=== PATIENT | male | born 1985 | race Caucasian/White ===

== ENCOUNTER 2020-09-17 04:11 | Inpatient (IN) | payer MEDICAID ==
[~2020-09-17] VITALS: Ht 180.3 cm; Wt 63.6 kg
[2020-09-17] VITALS (12 sets, daily range): BP systolic 87–121; BP diastolic 51–72
[~2020-09-17 04:11] MED LIST: dextrose 50%-water 50ml dispensing syringe IV ONE; naloxone 0.4 mg/ml inj ONE
--- NOTE | 2020-09-17 04:15 | NUR ---
PT GIVEN NARCAN 2 MG IV.
[2020-09-17] MEDS ORDERED: naloxone 2mg/2ml inj ONE ×3 (04:20→04:25)
--- NOTE | 2020-09-17 04:22 | NUR ---
GIVEN ADTL NARCAN 2 MG IV. PT RESPONDING SLIGHTLY. PT IS MAINTAINING HIS AIRWAY.
--- NOTE | 2020-09-17 04:23 | NUR ---
PT WITH EYES OPEN AND MUMBLING
[2020-09-17] MEDS ORDERED: diphenhydrAMINE 50 mg/ml inj ONE (04:32)
[2020-09-17] MEDS ORDERED: naloxone 2mg/2ml inj 2 MG in normal saline 500ml IV soln 498 ML IV ONE (04:35)
[2020-09-17] MEDS ORDERED: normal saline 1000ML IV soln IVB ONE ×2 (04:45→06:20)
[2020-09-17] MEDS ORDERED: BUPR1FIL5 SL (04:47)
[2020-09-17] MEDS ORDERED: BUPR150T8 PO (04:47)
--- NOTE | 2020-09-17 05:19 | NUR ---
Called [facility] to inquire if similar blue pills had been found in the community. [facility] did not have any information.
--- NOTE | 2020-09-17 05:20 | NUR ---
Poison control contacted. 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 No information was available on the pills. Poison control recommended a full tox screen, CMP, and CBC. Recommendation to continue supportive care and to use benzodiazepines for agitation to avoid using antipsychotics.
--- NOTE | 2020-09-17 05:21 | NUR ---
LATE ENTRY: 4TH DOSE 2 MG NARCN GIVEN AT 0426 5TH DOSE NARCAN 2 MG GIVEN AT 0429 BENEDRYL 50 MG IV AT 0435 6TH DOSE NARCAN 2 MG GIVEN AT 0438 NARCAN GTT STARTED 045 ACCUC HECK 46, (PT WAS FOUND BY EMS WITH GLUCOSE OF 60 AND WAS GIVEN D50 AND EMS RECHECK WAS 175.) 1 AMP D50 ADMIN 0504 ACCUCHECK 141 PT RESTRAINED AND SEIZURE PADS PLACED tEMP BANDA PLACED AND URINE SENT TO LAB. PT CONTINUES FIGHTING THE RESTRAINTS AND IS RESTLESS INTHE BED. EYES OPEN, MUMBLING INTERMITTENTLY. HR 114, RR 26 SATS ON RA 96%.
[2020-09-17 05:24] LABS: BASOPHILS % (AUTO) 0.4 % (0-1); EOSINOPHILS # (AUTO) 0.1 X10'3 (0-0.9); EOSINOPHILS % (AUTO) 2.1 % (0-6); HEMATOCRIT 40.8 % (42.0-52.0); HEMOGLOBIN 13.6 g/dl (14.0-17.9); LYMPHOCYTES # (AUTO) 3.2 X10'3 (1.1-4.8); LYMPHOCYTES % (AUTO) 49.4 % (21-51); MEAN CORPUSCULAR HEMOGLOBIN 30.2 PG (27.0-31.0); MEAN CORPUSCULAR HGB CONC 33.3 g/dL (33.0-36.5); MEAN CORPUSCULAR VOLUME 90.6 FL (78-98); MEAN PLATELET VOLUME 8.4 FL (7.4-10.4); MONOCYTES # (AUTO) 0.5 X10'3 (0-0.9); MONOCYTES % (AUTO) 8.3 % (2-12); NEUTROPHILS # (AUTO) 2.6 X10'3 (1.8-7.7); NEUTROPHILS % (AUTO) 39.8 % (42-75); PLATELET COUNT 268 X10'3 (140-440); RED CELL DISTRIBUTION WIDTH 13.5 % (11.5-14.5); WHITE BLOOD COUNT 6.4 X10'3 (4.5-11.0)
[2020-09-17 05:42] LABS: ALANINE AMINOTRANSFERASE 37 U/L (12-78); ALBUMIN 3.7 G/DL (3.4-5.0); ALBUMIN/GLOBULIN RATIO 1.1 (1.1-1.5); ALKALINE PHOSPHATASE 69 IU/L (46-116); ANION GAP 13 (8-16); ASPARTATE AMINO TRANSFERASE 32 U/L (10-37); BILIRUBIN,TOTAL 0.2 MG/DL (0.1-1.0); BLOOD UREA NITROGEN 11 MG/DL (7-18); BUN/CREATININE RATIO 13.8 (5.4-32.0); CALCIUM 9.1 MG/DL (8.5-10.1); CHLORIDE 106 MMOL/L (99-107); GLUCOSE 53 MG/DL (70-104); POTASSIUM 4.1 MMOL/L (3.5-5.1); SODIUM 147 MMOL/L (135-145); TOTAL CARBON DIOXIDE 28.3 MMOL/L (24-32); TOTAL PROTEIN 7.2 G/DL (6.4-8.2); eGFR > 90 ML/MIN
[2020-09-17 05:44] LABS: CREATINE KINASE 359 U/L (39-308); ETHANOL < 0.010 GM/DL (0.0-0.010)
[2020-09-17 05:45] LABS: ACETAMINOPHEN < 2.0 UG/ML (10-30)
[2020-09-17 05:46] LABS: CLARITY,URINE CLEAR (Clear); COLOR,URINE YELLOW (Yellow); GLUCOSE, URINE NEGATIVE (Neg); KETONES,URINE NEGATIVE (Neg); LEUKOCYTE ESTERASE ,URINE NEGATIVE (Neg); NITRITES, URINE NEGATIVE (Neg); OCCULT BLOOD,URINE NEGATIVE (Neg); PH,URINE 5.5 (4.8-8.0); PROTEIN,URINE NEGATIVE (Neg); UROBILINOGEN,URINE 0.2 E.U/dL (0.2-1.0)
[2020-09-17 05:51] LABS: UA COLLECTION TYPE FOLEY CATH
--- NOTE | 2020-09-17 06:02 | NUR ---
DR RIVERA UPDATED ACCUCHECK 82. VERBAL RECEIVED FOR STOP THE NARCAN GTT AND HE WILL START PT ON DEXTROSE MAINTENCE FLUIDS AND WILL ALSO ORDER ATIVAN. PT REMAINS RESTLESS AND IS PULLING AT ALL HIS RESTRAINTS
[2020-09-17] MEDS ORDERED: Dextrose 10%-water IV solution 1,000 ML IV ONE (06:05)
[2020-09-17] MEDS ORDERED: LORazepam 2 mg/ml vial IV ONE ×2 (06:05→06:20)
[2020-09-17 06:12] LABS: URINE AMPHETAMINE SCREEN POSITIVE (Neg); URINE BARBITUATE SCREEN NEGATIVE (Neg); URINE BENZODIAZEPINES SCREEN POSITIVE (Neg); URINE CANNABINOID SCREEN POSITIVE (Neg); URINE COCAINE SCREEN NEGATIVE (Neg); URINE METHADONE SCREEN NEGATIVE (Neg); URINE OPIATE SCREEN POSITIVE (Neg); URINE PHENCYCLIDINE SCREEN NEGATIVE (Neg)
--- NOTE | 2020-09-17 06:34 | NUR ---
uPON FIRST ASESEMENT, PT IS IN BED WITH 4 WAY HARD LOCKED RESTRAINTS. PT IS AGITATED AND TRYING TO GET OUT OF BED. PT NOT ENGAGING WITH ATTEMPTS TO COMMUNICATE. PT DOES MUMBLE RANDOM INCOHERENT WORDS.
[2020-09-17] MEDS: K, MAG and/or Phos replacement - Verify level? MC SCH ×2 (07:20→08:00)
[2020-09-17] MEDS ORDERED: acetaminophen 325mg tablet PO PRN (07:20)
[2020-09-17] MEDS ORDERED: potassium Cl 20 mEq SR tablet PO PRN ×2 (07:20)
[2020-09-17] MEDS ORDERED: magnesium hydroxide 30ml (MOM) UD suspension PO PRN (07:20)
[2020-09-17] MEDS ORDERED: buprenorphine/naloxone 8MG-2MG SUBlingual film SL ONE ×2 (07:45→08:25)
[2020-09-17] MEDS ORDERED: buprenorphine/naloxone 8MG-2MG SUBlingual film SL SCH (08:05)
[2020-09-17] MEDS: dexmedetomidine/D5W 100mL 100 ML IV PRN ×2 (08:18→22:31)
[2020-09-17 08:21] LABS: ABG BASE EXCESS 0.3 mmol/L (-2.0-2.0); ABG HCO3 24.6 mmol/L (22.0-26.0); ABG OXYGEN SATURATION 92.8 % (94-97); ABG PCO2 (T) 38.3 mmHg (35.0-48.0); ABG PO2 (T) 62.4 mmHg (75.0-100.0); ALLEN'S TEST POSITIVE; FCOHb 0.3 % (0.0-3.9); FMetHb 0.4 % (0.0-1.5); FO2Hb 92.2 % (94-97); PATIENT TEMPERATURE 36.7; TOTAL HEMOGLOBIN 13.1 G/dl (14.0-18.0)
--- NOTE | 2020-09-17 10:23 | NUR ---
Received at 0955, On precedex and sedated after being very combative and resistant to care in ER.
[2020-09-17] MEDS ORDERED: BUPR300T86 PO (11:31)
[2020-09-17] MEDS ORDERED: atropine 0.1mg/ml 10ml syringe ONE (12:00)
[2020-09-17] MEDS ORDERED: ringers solution, lacted 1,000 ML IV ONE (13:55)
--- NOTE | 2020-09-17 14:01 | NUR ---
Pt's urine output 20ml for the last 3 hours, per Dr. Daniels started 1L LR bolus running now. Also pt not waking up, Turned Precedex off couple hours ago. Temperature 34.9. Placed warming blanket on pt. Dr. Daniels aware of all.
[2020-09-17 14:16] LABS: BASOPHILS % (AUTO) 0.2 % (0-1); EOSINOPHILS % (AUTO) 0.1 % (0-6); HEMATOCRIT 33.9 % (42.0-52.0); HEMOGLOBIN 11.7 g/dl (14.0-17.9); LYMPHOCYTES # (AUTO) 0.6 X10'3 (1.1-4.8); LYMPHOCYTES % (AUTO) 11.6 % (21-51); MEAN CORPUSCULAR HEMOGLOBIN 30.7 PG (27.0-31.0); MEAN CORPUSCULAR HGB CONC 34.4 g/dL (33.0-36.5); MEAN CORPUSCULAR VOLUME 89.2 FL (78-98); MEAN PLATELET VOLUME 7.7 FL (7.4-10.4); MONOCYTES # (AUTO) 0.3 X10'3 (0-0.9); NEUTROPHILS # (AUTO) 4.4 X10'3 (1.8-7.7); NEUTROPHILS % (AUTO) 83.1 % (42-75); PLATELET COUNT 180 X10'3 (140-440); RED BLOOD COUNT 3.79 X10'6 (4.70-6.10); RED CELL DISTRIBUTION WIDTH 13.4 % (11.5-14.5); WHITE BLOOD COUNT 5.3 X10'3 (4.5-11.0)
[2020-09-17 14:31] LABS: ALBUMIN 2.9 G/DL (3.4-5.0); ANION GAP 6 (8-16); BLOOD UREA NITROGEN 9 MG/DL (7-18); BUN/CREATININE RATIO 13.2 (5.4-32.0); CHLORIDE 110 MMOL/L (99-107); CREATINE KINASE 998 U/L (39-308); CREATININE 0.68 MG/DL (0.60-1.10); GLUCOSE 156 MG/DL (70-104); MAGNESIUM 1.8 MG/DL (1.5-2.4); PHOSPHORUS 4.3 MG/DL (2.3-4.5); POTASSIUM 3.8 MMOL/L (3.5-5.1); SODIUM 145 MMOL/L (135-145); TOTAL CARBON DIOXIDE 28.8 MMOL/L (24-32); eGFR > 90 ML/MIN
[2020-09-17 14:38] LABS: ABG BASE EXCESS 0.1 mmol/L (-2.0-2.0); ABG HCO3 27.1 mmol/L (22.0-26.0); ABG OXYGEN SATURATION 94.9 % (94-97); ABG PCO2 (T) 50.6 mmHg (35.0-48.0); ABG PO2 (T) 71.3 mmHg (75.0-100.0); ALLEN'S TEST POSITIVE; FCOHb 0.3 % (0.0-3.9); FMetHb 0.4 % (0.0-1.5); FO2Hb 94.2 % (94-97); PATIENT TEMPERATURE 35.1; TOTAL HEMOGLOBIN 11.8 G/dl (14.0-18.0)
--- NOTE | 2020-09-17 18:15 | NUR ---
Patient in room CICU 2008. I have received report from ALEE JUSTICE and had the opportunity to ask questions and assume patient care.
--- NOTE | 2020-09-17 18:37 | NUR ---
Called pt's mom after i got the number from pt. She said that pt texted her last night that he wants to kill himself, this drug overdose was intentional. Mom said "do not let him leave the hospital or he will attempt to kill himself again". Called Dr. Daniels and informed her of this situation. She placed a Psych consult, also gave her Dr. Mishra's number. Informed Farzaneh Martinez and the mails supervisor nurse as well. Gave full report to mails supervisor nurse.
[2020-09-17] MEDS: normal saline 1000ml 1,000 ML IV SCH (19:54)
[2020-09-17] MEDS: enoxaparin 40mg/0.4ml syringe SUBCUT SCH (21:43)
[2020-09-17 21:47] LABS: BASOPHILS % (AUTO) 0.3 % (0-1); EOSINOPHILS # (AUTO) 0.1 X10'3 (0-0.9); HEMATOCRIT 35.2 % (42.0-52.0); HEMOGLOBIN 11.9 g/dl (14.0-17.9); LYMPHOCYTES # (AUTO) 1.3 X10'3 (1.1-4.8); LYMPHOCYTES % (AUTO) 15.8 % (21-51); MEAN CORPUSCULAR HEMOGLOBIN 30.6 PG (27.0-31.0); MEAN CORPUSCULAR HGB CONC 33.9 g/dL (33.0-36.5); MEAN CORPUSCULAR VOLUME 90.5 FL (78-98); MONOCYTES # (AUTO) 0.5 X10'3 (0-0.9); MONOCYTES % (AUTO) 6.8 % (2-12); NEUTROPHILS % (AUTO) 76.1 % (42-75); PLATELET COUNT 202 X10'3 (140-440); RED BLOOD COUNT 3.89 X10'6 (4.70-6.10); RED CELL DISTRIBUTION WIDTH 13.4 % (11.5-14.5); WHITE BLOOD COUNT 7.9 X10'3 (4.5-11.0)
[2020-09-17 22:11] LABS: ALBUMIN 2.9 G/DL (3.4-5.0); ANION GAP 6 (8-16); BLOOD UREA NITROGEN 8 MG/DL (7-18); CALCIUM 8.1 MG/DL (8.5-10.1); CHLORIDE 109 MMOL/L (99-107); CREATININE 0.73 MG/DL (0.60-1.10); GLUCOSE 66 MG/DL (70-104); POTASSIUM 3.8 MMOL/L (3.5-5.1); SODIUM 146 MMOL/L (135-145); eGFR > 90 ML/MIN
[2020-09-17 22:13] LABS: CREATINE KINASE 1027 U/L (39-308)
[2020-09-18] VITALS (17 sets, daily range): BP systolic 98–120; BP diastolic 57–85
[2020-09-18] MEDS: normal saline 1000ml 1,000 ML IV SCH (03:00)
[2020-09-18 08:45] LABS: BASOPHILS % (AUTO) 0.1 % (0-1); EOSINOPHILS # (AUTO) 0.1 X10'3 (0-0.9); EOSINOPHILS % (AUTO) 0.8 % (0-6); HEMATOCRIT 34.3 % (42.0-52.0); HEMOGLOBIN 11.6 g/dl (14.0-17.9); LYMPHOCYTES # (AUTO) 1.1 X10'3 (1.1-4.8); LYMPHOCYTES % (AUTO) 14.2 % (21-51); MEAN CORPUSCULAR HEMOGLOBIN 30.7 PG (27.0-31.0); MEAN CORPUSCULAR VOLUME 90.5 FL (78-98); MEAN PLATELET VOLUME 8.2 FL (7.4-10.4); MONOCYTES # (AUTO) 0.5 X10'3 (0-0.9); MONOCYTES % (AUTO) 5.9 % (2-12); PLATELET COUNT 171 X10'3 (140-440); RED BLOOD COUNT 3.79 X10'6 (4.70-6.10); RED CELL DISTRIBUTION WIDTH 13.5 % (11.5-14.5); WHITE BLOOD COUNT 7.6 X10'3 (4.5-11.0)
[2020-09-18 08:53] LABS: ALANINE AMINOTRANSFERASE 34 U/L (12-78); ALBUMIN 2.8 G/DL (3.4-5.0); ANION GAP 7 (8-16); ASPARTATE AMINO TRANSFERASE 48 U/L (10-37); BILIRUBIN,DIRECT 0.2 MG/DL (0-0.3); BILIRUBIN,TOTAL 0.5 MG/DL (0.1-1.0); BLOOD UREA NITROGEN 7 MG/DL (7-18); BUN/CREATININE RATIO 8.8 (5.4-32.0); CALCIUM 8.2 MG/DL (8.5-10.1); CHLORIDE 109 MMOL/L (99-107); GLUCOSE 111 MG/DL (70-104); MAGNESIUM 1.8 MG/DL (1.5-2.4); PHOSPHORUS 3.3 MG/DL (2.3-4.5); POTASSIUM 3.8 MMOL/L (3.5-5.1); SODIUM 145 MMOL/L (135-145); TOTAL CARBON DIOXIDE 29.2 MMOL/L (24-32); TOTAL PROTEIN 5.5 G/DL (6.4-8.2); eGFR > 90 ML/MIN
[2020-09-18 09:08] LABS: ALKALINE PHOSPHATASE 57 IU/L (46-116)
[2020-09-18 09:09] LABS: CREATINE KINASE 1299 U/L (39-308)
[2020-09-18] MEDS ORDERED: PEG 400/HYPROMELLOSE/GLYCERIN 15ml bottle EACHEYE PRN (10:40)
[2020-09-18 15:42] LABS: CREATINE KINASE 1220 U/L (39-308)
[2020-09-18] MEDS ORDERED: buprenorphine/naloxone 8MG-2MG SUBlingual film SL ONE (16:15)
--- NOTE | 2020-09-18 16:45 | NUR ---
PATIENT ARRIVED TO FLOOR. VSS.
--- NOTE | 2020-09-18 16:52 | NUR ---
RECEIVED REPORT FROM ALEE REDD. AWAITING PATIENT ARRIVAL.
--- NOTE | 2020-09-18 18:19 | NUR ---
Problems reprioritized. Patient report given, questions answered & plan of care reviewed with ALEE WANG.
--- NOTE | 2020-09-18 18:25 | NUR ---
Patient in room [facility] 360. I have received report from Cara VICKERS and had the opportunity to ask questions and assume patient care.
--- NOTE | 2020-09-18 18:30 | NUR ---
Patient in room [facility] 360. I have received report from Cara VICKERS and had the opportunity to ask questions and assume patient care.
[2020-09-18] MEDS: enoxaparin 40mg/0.4ml syringe SUBCUT SCH (20:22)
--- NOTE | 2020-09-18 20:43 | NUR ---
Received a note that mom wants to talk to the MD. Informed Radha that the hospitalist will be assuming care of her son tomorrow and that the plan is to wait until patient is medically cleared and then will be having a psych eval. ASked if she had pt's pants,wallet or keys, which she does not. Mom said she will call [employer] [place] police tomorrow and that maybe they might know what happened to them (as not listed on the SBar here). Mom states that she will be in tomorrow to visit her son.
--- NOTE | 2020-09-18 23:14 | NUR ---
Poison control called (Chi), asking about LOC and labs. Answered all questons and Chi stated "ok, I think we are pretty much done at this end".
[2020-09-19] VITALS: BP 123/76
[2020-09-19 07:50] VITALS: BP 111/65
[2020-09-19] MEDS: buprenorphine/naloxone 2-0.5mg sublingual tablet SL SCH (08:25)
[2020-09-19] MEDS: buPROPion SR 150mg tablet PO SCH ×2 (08:25→20:29)
[2020-09-19 08:31] LABS: ALBUMIN 2.7 G/DL (3.4-5.0); ANION GAP 9 (8-16); BLOOD UREA NITROGEN 5 MG/DL (7-18); BUN/CREATININE RATIO 7.9 (5.4-32.0); CHLORIDE 106 MMOL/L (99-107); CREATINE KINASE 711 U/L (39-308); CREATININE 0.63 MG/DL (0.60-1.10); GLUCOSE 85 MG/DL (70-104); POTASSIUM 3.1 MMOL/L (3.5-5.1); SODIUM 144 MMOL/L (135-145); TOTAL CARBON DIOXIDE 29.3 MMOL/L (24-32); eGFR > 90 ML/MIN
[2020-09-19] MEDS ORDERED: potassium Cl 40MEQ/1/2NS 520ml 520 ML IV PRN (09:50)
[2020-09-19] MEDS ORDERED: magnesium 4gm in 100ml NS 100 ML IV PRN (09:50)
[2020-09-19] MEDS ORDERED: magnesium Cl slow-release 64mg tablet PO PRN (09:50)
[2020-09-19] MEDS ORDERED: potassium Cl 20 mEq SR tablet PO PRN (09:50)
[2020-09-19] MEDS: potassium Cl 20 mEq SR tablet PO PRN ×3 (11:47→21:53)
[2020-09-19 13:17] VITALS: BP 126/68
--- NOTE | 2020-09-19 18:19 | NUR ---
Problems reprioritized. Patient report given, questions answered & plan of care reviewed with lien ospina.
--- NOTE | 2020-09-19 18:23 | NUR ---
PAGER ID: [phone] MESSAGE: Charlee Vallejo 360B: patient requesting something to help him sleep. says he normally uses ambien and it works for him. thank you [phone]
[2020-09-19] MEDS ORDERED: Melatonin 3mg tablet PO PRN (18:40)
[2020-09-19 19:00] VITALS: BP 129/77
[2020-09-19] MEDS: enoxaparin 40mg/0.4ml syringe SUBCUT SCH (20:32)
[2020-09-19] MEDS: K and/or MAG REPLACEMENT MC SCH (21:50)
--- NOTE | 2020-09-20 06:04 | NUR ---
Report given to Micheal IVCKERS. questions asked and answered, care of patient assumed by Micheal vickers
[2020-09-20 06:05] LABS: BASOPHILS % (AUTO) 0.3 % (0-1); EOSINOPHILS # (AUTO) 0.1 X10'3 (0-0.9); EOSINOPHILS % (AUTO) 2.2 % (0-6); HEMATOCRIT 34.1 % (42.0-52.0); HEMOGLOBIN 11.7 g/dl (14.0-17.9); LYMPHOCYTES # (AUTO) 1.3 X10'3 (1.1-4.8); LYMPHOCYTES % (AUTO) 20.5 % (21-51); MEAN CORPUSCULAR HEMOGLOBIN 30.5 PG (27.0-31.0); MEAN CORPUSCULAR HGB CONC 34.3 g/dL (33.0-36.5); MEAN PLATELET VOLUME 8.1 FL (7.4-10.4); MONOCYTES # (AUTO) 0.5 X10'3 (0-0.9); MONOCYTES % (AUTO) 7.7 % (2-12); NEUTROPHILS # (AUTO) 4.5 X10'3 (1.8-7.7); NEUTROPHILS % (AUTO) 69.3 % (42-75); PLATELET COUNT 194 X10'3 (140-440); RED BLOOD COUNT 3.83 X10'6 (4.70-6.10); RED CELL DISTRIBUTION WIDTH 13.1 % (11.5-14.5); WHITE BLOOD COUNT 6.5 X10'3 (4.5-11.0)
[2020-09-20 06:26] LABS: ALANINE AMINOTRANSFERASE 49 U/L (12-78); ALBUMIN 2.6 G/DL (3.4-5.0); ALBUMIN/GLOBULIN RATIO 0.8 (1.1-1.5); ALKALINE PHOSPHATASE 72 IU/L (46-116); ANION GAP 5 (8-16); ASPARTATE AMINO TRANSFERASE 55 U/L (10-37); BILIRUBIN,TOTAL 0.4 MG/DL (0.1-1.0); BLOOD UREA NITROGEN 3 MG/DL (7-18); BUN/CREATININE RATIO 5.2 (5.4-32.0); CALCIUM 8.3 MG/DL (8.5-10.1); CHLORIDE 106 MMOL/L (99-107); CREATININE 0.58 MG/DL (0.60-1.10); GLUCOSE 85 MG/DL (70-104); MAGNESIUM 1.9 MG/DL (1.5-2.4); PHOSPHORUS 3.5 MG/DL (2.3-4.5); POTASSIUM 4.9 MMOL/L (3.5-5.1); SODIUM 140 MMOL/L (135-145); TOTAL CARBON DIOXIDE 29.3 MMOL/L (24-32); TOTAL PROTEIN 5.8 G/DL (6.4-8.2); eGFR > 90 ML/MIN
--- NOTE | 2020-09-20 06:38 | NUR ---
RN accepting is now Isabella RN, report given and questions answered, care of patient assumed by Isabella VICKERS
[2020-09-20 08:00] VITALS: BP 116/78
[2020-09-20] MEDS: K and/or MAG REPLACEMENT MC SCH (08:00)
[2020-09-20] MEDS: buPROPion SR 150mg tablet PO SCH ×2 (08:17→19:15)
[2020-09-20] MEDS: buprenorphine/naloxone 2-0.5mg sublingual tablet SL SCH (08:18)
[2020-09-20 10:56] LABS: CREATINE KINASE 566 U/L (39-308)
[2020-09-20 11:55] VITALS: BP 124/73
--- NOTE | 2020-09-20 14:07 | NUR ---
Initial: Pt admit DX multiple med OD w/ SI on 1798 hold pending U eval for 5150 hold per EMR. Pt PO 100% initial meals though refused breakfast this AM; noted now AOx4 from initial ALOC. Overall still meeting needs. LB 09/17. Will continue to monitor for PO acceptance and trends this admit. Rec: 1. continue regular diet 2. routine bowel care 3. scaled wt this admit Addendum: 09/20/20 at [address] Amended: Links added.
--- NOTE | 2020-09-20 18:31 | NUR ---
Problems reprioritized. Patient report given, questions answered & plan of care reviewed with ALEE PARIKH.
--- NOTE | 2020-09-20 18:31 | NUR ---
Patient in room [facility] 360B. I have received report from ALEE Mason and had the opportunity to ask questions and assume patient care.
[2020-09-20 19:00] VITALS: BP 152/79
[2020-09-20] MEDS: enoxaparin 40mg/0.4ml syringe SUBCUT SCH (19:15)
--- NOTE | 2020-09-20 20:47 | NUR ---
at discharge when at the pharmacy door, patient asked about the disposition of his wallet and drivers license and $600 arredondo. He states his pants were cut off, but he didn't know where the wallet was. [employer] information explains the wallet was sent home with family. Mom was present at the time and made no offer of clarification as to having taken the wallet home.
== END 2020-09-20 19:30 | disposition home or self-care (01) | DRG 817 ==
LOC: ER 04:11 → ED HOLD 07:16 → CICU 2S 09:54 → SUR 3N 09-18 17:17
PROVIDERS: ADMIT Internal Medicine Pulmonary Disease; ATTEND Internal Medicine Pulmonary Disease
DX: T43.622A Poisoning by amphetamines, intentional self-harm, initial encounter (principal); R45.851 Suicidal ideations; T40.602A Poisoning by unspecified narcotics, intentional self-harm, initial encounter; E16.2 Hypoglycemia, unspecified; E86.9 Volume depletion, unspecified; Z20.822 Contact with and (suspected) exposure to COVID-19; Z79.899 Other long term (current) drug therapy; Y92.89 Other specified places as the place of occurrence of the external cause; E87.6 Hypokalemia
CPT/HCPCS: 36415; 36600; 70450; 71045; 80048; 80053; 80076; 80305; 80320; 80329; 81003; 82140; 82550; 82803; 82948; 83605; 83735; 84100; 85018; 85025; 85610; 87081; 87635; 93005; 96365; 97116; 97162; 97530; 99291; G0378; J0461; J1200; J1650; J2060; J2310; J7030; J7120

== ENCOUNTER 2021-02-20 20:08 | Emergency (ER) | payer MEDICAID ==
[~2021-02-20] VITALS: Ht 177.8 cm; Wt 65.9 kg
[~2021-02-20 20:08] MED LIST changes: +BUPR1FIL5 SL; +BUPR300T86 PO; -dextrose 50%-water 50ml dispensing syringe IV ONE; -naloxone 0.4 mg/ml inj ONE
[2021-02-20 21:25] VITALS: BP 110/70
== END 2021-02-20 21:27 ==
LOC: ER 20:08
DX: F15.10 Other stimulant abuse, uncomplicated (principal); T50.905A Adverse effect of unspecified drugs, medicaments and biological substances, initial encounter; Z02.89 Encounter for other administrative examinations
CPT/HCPCS: 99283

== ENCOUNTER 2021-07-06 12:11 | Outpatient (CLI) | payer MEDICAID | END 2021-07-06 23:59 | disposition home or self-care (01) | LOC: LAB 12:11 | PROVIDERS: ATTEND General Practice | DX: F11.20 Opioid dependence, uncomplicated (principal) | CPT/HCPCS: 93005 ==

== ENCOUNTER 2023-09-09 10:14 | Outpatient (CLI) | payer MEDICAID ==
[~2023-09-09 10:14] MED LIST changes: +BUPR-564 PO; -BUPR300T86 PO
== END 2023-09-09 23:59 | disposition home or self-care (01) ==
LOC: RAD 10:14
PROVIDERS: ATTEND General Practice
DX: Z01.810 Encounter for preprocedural cardiovascular examination (principal)
CPT/HCPCS: 93005

== ENCOUNTER 2024-02-03 12:09 | Emergency (ER) | payer MEDICAID ==
[~2024-02-03] VITALS: Ht 182.9 cm; Wt 105.6 kg
[2024-02-03 14:08] LABS: BASOPHILS % (AUTO) 0.2 % (0-1); EOSINOPHILS % (AUTO) 0.2 % (0-6); HEMATOCRIT 46.5 % (42.0-52.0); HEMOGLOBIN 15.6 g/dl (14.0-17.9); LYMPHOCYTES # (AUTO) 1.1 X10'3 (1.1-4.8); MEAN CORPUSCULAR HEMOGLOBIN 30.3 PG (27.0-31.0); MEAN CORPUSCULAR HGB CONC 33.7 g/dL (33.0-36.5); MEAN PLATELET VOLUME 7.8 FL (7.4-10.4); MONOCYTES # (AUTO) 0.5 X10'3 (0-0.9); NEUTROPHILS # (AUTO) 2.9 X10'3 (1.8-7.7); NEUTROPHILS % (AUTO) 63.6 % (42-75); PLATELET COUNT 295 X10'3 (140-440); RED BLOOD COUNT 5.16 X10'6 (4.70-6.10); RED CELL DISTRIBUTION WIDTH 15.9 % (11.5-14.5); WHITE BLOOD COUNT 4.6 X10'3 (4.5-11.0)
[2024-02-03 14:34] LABS: ALBUMIN 4.2 G/DL (3.4-5.0); ANION GAP 6 (8-16); BLOOD UREA NITROGEN 14 MG/DL (7-18); BUN/CREATININE RATIO 15.4 (10.0-20.0); CALCIUM 8.9 MG/DL (8.5-10.1); CHLORIDE 101 MMOL/L (99-107); CREATININE 0.91 MG/DL (0.60-1.10); GLUCOSE 92 MG/DL (70-104); POTASSIUM 4.4 MMOL/L (3.5-5.1); SODIUM 139 MMOL/L (135-145); THYROID STIMULATING HORMONE 2.21 ulU/ml (0.34-4.50); TOTAL CARBON DIOXIDE 31.6 MMOL/L (24-32); eCRCL 123 ML/MIN; eGFR > 90 ML/MIN
[2024-02-03] MEDS ORDERED: PROP10TA10 PO (14:49)
[2024-02-03 14:58] VITALS: BP 147/81; PULSE 92; RESP 16; TEMP 98.9; O2SAT 95
== END 2024-02-03 14:59 | disposition home or self-care (01) ==
LOC: ER 12:10
DX: R25.1 Tremor, unspecified (principal); F32.A Depression, unspecified; F15.90 Other stimulant use, unspecified, uncomplicated; Z79.899 Other long term (current) drug therapy
CPT/HCPCS: 36415; 70450; 80048; 84145; 84443; 85025; 99284

== ENCOUNTER 2024-02-14 16:57 | Emergency (ER) | payer MEDICAID ==
[~2024-02-14] VITALS: Ht 177.8 cm; Wt 100.0 kg
[~2024-02-14 16:57] MED LIST changes: +PROP10TA10 PO
[2024-02-14 17:01] VITALS: BP 130/91; PULSE 77; RESP 16; TEMP 97.4; O2SAT 99
[2024-02-14] MEDS ORDERED: TIZA-189 PO (17:13)
== END 2024-02-14 17:27 | disposition home or self-care (01) ==
LOC: ER 16:58
DX: R25.1 Tremor, unspecified (principal); F15.90 Other stimulant use, unspecified, uncomplicated; Z79.899 Other long term (current) drug therapy
CPT/HCPCS: 99283

== ENCOUNTER 2024-09-03 20:12 | Emergency (ER) | payer MEDICAID ==
[~2024-09-03] VITALS: Ht 182.9 cm; Wt 115.9 kg
[~2024-09-03 20:12] MED LIST changes: +BUPR-480 PO; -BUPR-564 PO; -PROP10TA10 PO; +TIZA-189 PO
[2024-09-03 20:17] VITALS: TEMP 98.4
--- NOTE | 2024-09-03 20:57 | RADIOLOGY REPORT ---
EXAM: CT CT HEAD INDICATION: FALL TECHNIQUE: CT of the head without intravenous contrast. Radiation Dose Information: CT Dose: CTDI volume is 65.06 mGy. Dose-length product is 1227.10 mGy*cm The dose indicators for CT are the volume Computed Tomography (CT) Dose Index (CTDIvol) and the Dose Length Product (DLP), and are measured in units of mGy and mGy-cm, respectively. These indicators are not patient dose, but values generated from the CT scanner acquisition factors. The report includes radiation exposure data for exposures received during this examination. COMPARISON: CT CT HEAD on DOS: 02/03/24, CT HEAD on DOS: 09/17/20 FINDINGS: There is no evidence of acute intracranial hemorrhage, extra-axial collection, mass effect, midline s hift, herniation or hydrocephalus. The ventricles, sulci and cisterns are age appropriate. The garcia-white differentiation is intact. Patchy periventricular and subcortical white matter hypoattenuation is nonspecific but may be related to small vessel ischemic disease. The visualized paranasal sinuses and mastoid air cells are clear. The surrounding soft tissues and osseous structures are unremarkable. IMPRESSION: 1. No acute intracranial abnormality.
--- NOTE | 2024-09-03 21:00 | RADIOLOGY REPORT ---
EXAM: CT CT CERVICAL SPINE INDICATION: FALL EXAM DATE: 09/03/2024 08:42 PM COMPARISON: None TECHNIQUE: Multiple axial CT images of the cervical spine were obtained using bone algorithm. Axial a nd coronal reformatting was done. Bone and soft tissue windows were reviewed. Radiation Dose Information: CT Dose: CTDI volume is 27.43 mGy. Dose-length product is 867163 mGy*cm FINDINGS: The cervical alignment is intact. No acute cervical spine fracture is identified. The vertebral body heights are intact. No suspicious osseous lesions are identified. No significant degenerative changes are identified. There is no prevertebral soft tissue swelling. IMPRESSION: 1. No evidence of acute cervical spine fracture or traumatic malalignment. 2. All CT scans at this medical facility are performed using dose modulation techniques as appropriate to a performed exam including the following: Automated exposure control was utilized; adjustment of t he MA and/or KV according to patient size; and use of iterative reconstruction technique.
--- NOTE | 2024-09-03 22:53 | Physician Documentation ---
History of Present Illness ~ Chief Complaint: Mechanical Fall Stated Complaint: FALL HIT HEAD Time Seen by MD: 22:38 Primary Medical Doctor: Dominic HULL Patient is seen today with complaints of falling off of the two steps going into his trailer and he fell down onto some cinder blocks and hit his head on the concrete. Patient states he did lose consciousness for a few sec per his recollection. Patient denies any current nausea or vomiting or memory loss. Patient states he also did hit his right foot/ankle on something and has some swelling and pain there but states he is able to bear weight. Patient has no other concern or complaint at this time. Tetanus within 5 Years?: No (unk) Medication Reconciliation Allergies: Uncoded Allergies: TRIAMINIC (Allergy, Unknown, 09/03/24) Scheduled Buprenorphine Hcl/Naloxone Hcl (Suboxone 4 Mg-1 Mg Sl Film), 1 STRIP SL DAILY, (Reported) Bupropion HCl (Bupropion Xl), 1 TAB PO DAILY, (Reported) Tizanidine Hcl (Zanaflex), 1 TAB PO Q8H Past Medical History Past Medical History: No Pertinent History Alcohol Use: None Drug Use: methamphetamine, other Review of Systems Constitutional: Denies: chills, fever, weakness Eyes: Denies: pain, blurred vision ENT: Denies: ear pain, nose pain, throat pain, mouth pain Respiratory: Denies: cough, shortness of breath Cardiovascular: Denies: chest pain, palpitations Gastrointestinal: Denies: abdominal pain, nausea, vomiting Genitourinary: Denies: burning, dysuria Male Genitalia: Denies: penile discharge, testicular pain Neurological: Denies: headache, dizziness Musculoskeletal: Denies: pain, swelling Integumentary: Denies: rash, lesions Allergic/Immunologic: Denies: hives, itching Hematologic/Lymphatic: Denies: no symptoms reported Psychiatric: Denies: depression, anxiety Physical Exam Vital Signs: Temperature: 98.4, Source: Temporal, Heart Rate: 90, Respiratory Rate: 18, BP: 171/96, Pulse Oximetry: 95, Weight: 115.910 Physical Exam General: Awake and Alert, no acute distress. HEENT: PERRLA bilaterally, EOM intact bilaterally. Conjunctiva pink, Sclera clear, Mucus Membranes moist. Neck: Supple without masses and tenderness. Resp: Unlabored. Lungs clear to auscultation bilaterally. Heart: Regular Rate and rhythm, normal S1 and S2 without murmur, rub or gallop. Abdomen: Soft and non tender no organomegaly Musculoskeletal: Patient does have mild swelling on the lateral aspect of his right foot. Range of motion of right ankle intact. Patient has no tenderness to palpation of the medial or lateral malleoli distally. Patient has minimal tenderness to palpation along the head of the 5th metatarsal proximally. There is a small abrasion on the lateral aspect of the right foot. Patient is guy rovascularly intact distally. Motor function intact distally of bilateral upper and lower extremities. Extremities: No cyanosis,clubbing or edema. Skin: Warm and Dry. Progress Results/Orders Results/Orders Orders - VERA MONTALVO PAC Ct Head (09/03/24 20:27) Ct Cervical Spine (09/03/24 20:27) Completed Orders - VERA MONTALVO PAC Ct Head (09/03/24 20:27) Ct Cervical Spine (09/03/24 20:27) Vital Signs 09/03/24 20:17 Temp 98.4 Pulse 90 Resp 18 B/P (MAP) 171/96 Pulse Ox 95 EKG/XRAY/CT/US/VASC/MRI CT : Impression CAT SCAN Patient: NAHED MANJARREZ Medical Record: [id number] [facility] 1985, Age: 38 Sex: Male Location: ER Patient Status: [facility] ER Service Date/Time: 09/03/242026 Ordering Physician: VERA MONTALVO PAC Exam: CT CERVICAL SPIN E EXAM: CT CT CERVICAL SPINE INDICATION: FALL EXAM DATE: 09/03/2024 08:42 PM COMPARISON: None TECHNIQUE: Multiple axial CT images of the cervical spine were obtained using bone algorithm. Axial and coronal reformatting was done. Bone and soft tissue windows were reviewed. Radiation Dose Information: CT Dose: CTDI volume is 27.43 mGy. Dose-length product is 384508 mGy*cm FINDINGS: The cervical alignment is intact. No acute cervical spine fracture is identified. The vertebral body heights are intact. No suspicious osseous lesions are identified. No significant degenerative changes are identified. There is no prevertebral soft tissue swelling. IMPRESSION: 1. No evidence of acute cervical spine fracture or traumatic malalignment. 2. All CT scans at this medical facility are performed using dose modulation techniques as appropriate to a performed exam including the following: Automated exposure control was utilized; adjustment of the MA and/or KV according to patient size; and use of iterative reconstruction technique. Electronically Signed by:LORRAINE WATERMAN MD Date & Time: 09/03/242057 Dictated by: LORRAINE WATERMAN MD Dictation date and time: 09/03/242057 Primary Care Provider: NO PRIMARY CARE PROVIDER cc: VERA MONTALVO PAC ~ CAT SCAN Patient: NAHED MANJARREZ Medical Record: [id number] [facility] 1985, Age: 38 Sex: Male Location: ER Patient Status: [facility] ER Service Date/Time: 09/03/242026 Ordering Physician: VERA MONTALVO PAC Exam: CT HEAD EXAM: CT CT HEAD INDICATION: FALL TECHNIQUE: CT of the head without intravenous contrast. Radiation Dose Information: CT Dose: CTDI volume is 65.06 mGy. Dose-length product is 1227.10 mGy*cm The dose indicators for CT are the volume Computed Tomography (CT) Dose Index (CTDIvol) and the Dose Length Product (DLP), and are measured in units of mGy and mGy-cm, respectively. These indicators are not patient dose, but values generated from the CT scanner acquisition factors. The report includes radiation exposure data for exposures received during this examination. COMPARISON: CT CT HEAD on DOS: 02/03/24, CT HEAD on DOS: 09/17/20 FINDINGS: There is no evidence of acute intracranial hemorrhage, extra-axial collection, mass effect, midline shift, herniation or hydrocephalus. The ventricles, sulci and cisterns are age appropriate. The garcia-white differentiation is intact. Patchy periventricular and subcortical white matter hypoattenuation is nonspecific but may be related to small vessel ischemic disease. The visualized paranasal sinuses and mastoid air cells are clear. The surrounding soft tissues and osseous structures are unremarkable. IMPRESSION: 1. No acute intracranial abnormality. Electronically Signed by:LORRAINE WATERMAN MD Date & Time: 09/03/242054 Dictated by: LORRAINE WATERMAN MD Dictation date and time: 09/03/242054 Primary Care Provider: NO PRIMARY CARE PROVIDER cc: VERA MONTALVO PAC ~ Medical Decision Making Findings Patient is seen today with complaints of falling off of the two steps going into his trailer and he fell down onto some cinder blocks and hit his head on the concrete. Patient states he did lose consciousness for a few sec per his recollection. Patient denies any current nausea or vomiting or memory loss. Patient states he also did hit his right foot/ankle on something and has some swelling and pain there but states he is able to bear weight. Patient has no other concern or complaint at this time. CT scan of head and neck were unremarkable without any sign of acute injury. Patient declined x-ray of right foot at this time. Patient will advance activity level as tolerated on right foot and if no better in two days patient will return for x-rays of right foot and ankle or as needed sooner. Return to ED with any worsening, concerning or changing symptoms. Postconcussive protocol discussed with the patient and voiced understanding. Departure Disposition: HOME / SELF CARE / HOMELESS Impression: Primary Impression: Fall Qualified Codes: W19.XXXA - Unspecified fall, initial encounter Additional Impression: Concussion Qualified Codes: S06.0X1A - Concussion with loss of consciousness of 30 minutes or less, initial encounter Condition: Improved Discharge Instructions: Concussion, Adult, [id number], Fall Prevention in the Home, Adult, [id number] Additional Instructions: CT scan of head and neck were unremarkable without any sign of acute injury. Patient declined x-ray of right foot at this time. Patient will advance activity level as tolerated on right foot and if no better in two days patient will return for x-rays of right foot and ankle or as needed sooner. Return to ED with any worsening, concerning or changing symptoms. Postconcussive protocol discussed with the patient and voiced understanding. Referrals: NO PRIMARY CARE PROVIDER (PCP) Signature Scribe Signature: No scribe Attestation: No scribe VERA MONTALVO PAC September 03, 2024 22:53
[2024-09-03 23:04] VITALS: BP 156/97; PULSE 89; RESP 18; O2SAT 92
== END 2024-09-03 23:14 | disposition home or self-care (01) ==
LOC: ER 20:12
DX: S06.0X1A Concussion with loss of consciousness of 30 minutes or less, initial encounter (principal); Z79.899 Other long term (current) drug therapy; W18.30XA Fall on same level, unspecified, initial encounter; Y93.89 Activity, other specified; Y92.89 Other specified places as the place of occurrence of the external cause; Y99.8 Other external cause status
CPT/HCPCS: 70450; 72125; 99284

== ENCOUNTER 2024-09-06 14:27 | Emergency (ER) | payer MEDICAID ==
[~2024-09-06] VITALS: Ht 185.4 cm; Wt 113.6 kg
[2024-09-06] MEDS: normal saline 1000ml 1,000 ML IV ONE (15:00)
--- NOTE | 2024-09-06 15:06 | ELECTROCARDIOGRAPH REPORT ---
[facility] Test Date: 2024-09-06 Test Time: 15:02:46 Pat Name: NAHED MANJARREZ Department: [facility]- Patient ID: 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 Reading MD: Dr. Ariadna Serrato Measurements Intervals [place] Rate: 100 P: 72 GA: 150 QRS: 75 QRSD: 95 T: 8 QT: 300 QTc: 387 Interpretive Statements Sinus tachycardia Borderline T wave abnormalities Non specific changes Electronically Signed On 09-07-2024 18:43:[address] Ariadna Serrato Please click the below link to view image of tracing.
--- NOTE | 2024-09-06 15:14 | Physician Documentation ---
History of Present Illness ~ Chief Complaint: Overdose Stated Complaint: WITHDRAWAL Time Seen by MD: 14:55 Primary Medical Doctor: Dominic Olvera HPI 38-year-old male brought to the emergency department today by his mother after he was found to be slurring his words and difficult to arouse. On questioning, he admits that he orders bromazolam on the Internet, 2 mg tablets as what he believes he takes. He typically takes them two to 3 times a day but admits that he took 10 today. He denies intent to harm himself. He denies any concerns. History of diabetes, but is unsure what he takes. Medication Reconciliation Allergies: Uncoded Allergies: TRIAMINIC (Allergy, Unknown, 09/03/24) Scheduled Buprenorphine Hcl/Naloxone Hcl (Suboxone 4 Mg-1 Mg Sl Film), 1 STRIP SL DAILY, (Reported) Bupropion HCl (Bupropion Xl), 1 TAB PO DAILY, (Reported) Naloxone HCl (Narcan), 1 SPRAYS BOTHNARES ONCE Tizanidine Hcl (Zanaflex), 1 TAB PO Q8H Past Medical History Past Medical History: No Pertinent History Alcohol Use: None Drug Use: methamphetamine, other Review of Systems ROS As stated above in the HPI, otherwise all systems are reviewed and negative. Physical Exam Vital Signs: Temperature: 99.0, Source: Oral, Heart Rate: 109, Respiratory Rate: 16, BP: 171/76, Pulse Oximetry: 94, Weight: 113.640 Oxygen Flow Rate: 0 Physical Exam General: Arousable but drowsy. No distress. Neck: Full range of motion. Respiratory: Lungs clear, no respiratory distress. Chest: No accessory muscle use. Cardiovascular: Regular rate and rhythm, no murmurs. Gastrointestinal: Soft, nontender, nondistended. Bowels sounds present. Extremities: Normal range of motion, no deformity. Neurologic: Oriented x4. No focal deficits. Speech slurred but answers questions appropriately but with somewhat delayed response time. Psychiatric: Normal mood and affect. Skin: Normal color, warm and dry. Trace edema to both feet. Scabbed wound right lateral foot. Progress Progress Note 1551: Desaturated to 81% on room air-placed on two liters of oxygen. Dr. Dea Khalil reassessed this patient at 10:36 p.m. he is sitting upright completely alert and oriented ready for discharge Results/Orders Results/Orders Vital Signs 09/06/24 09/06/24 09/06/24 09/06/24 14:28 14:44 14:45 14:52 Temp 99.0 Pulse 105 109 111 Resp 18 13 13 16 B/P (MAP) 140/70 171/76 (107) 171/76 (107) Pulse Ox 94 94 96 O2 Flow Rate 0 0 09/06/24 09/06/24 09/06/24 09/06/24 15:00 15:15 15:30 15:45 Pulse 107 95 91 89 Resp 17 13 13 11 B/P (MAP) 142/58 (86) 134/79 (97) 146/91 (109) 129/89 (102) Pulse Ox 86 91 89 91 O2 Flow Rate 0 3.0 09/06/24 09/06/24 09/06/24 09/06/24 16:00 16:15 16:22 16:30 Pulse 81 82 89 88 Resp 8 9 8 10 B/P (MAP) 181/90 (120) 139/114 (122) 139/114 155/95 (115) Pulse Ox 91 90 90 97 09/06/24 09/06/24 09/06/24 09/06/24 17:26 18:20 19:00 20:00 Pulse 82 89 74 63 Resp 17 12 11 10 B/P (MAP) 156/99 (118) 176/96 143/84 (103) 132/94 (107) Pulse Ox 94 96 96 94 O2 Flow Rate 4.0 2.5 09/06/24 09/06/24 09/06/24 21:00 22:00 23:09 Temp 98.5 Pulse 66 78 74 Resp 9 12 13 B/P (MAP) 167/92 (117) 133/96 (108) 127/81 Pulse Ox 95 95 93 Laboratory Tests Test 09/06/24 15:12 09/06/24 15:15 White Blood Count 9.6 Red Blood Count 4.78 Hemoglobin 13.3 L Hematocrit 40.6 L Mean Corpuscular Volume 85.1 Mean Corpuscular Hemoglobin 27.8 Mean Corpuscular Hemoglobin Concent 32.7 L Red Cell Distribution Width 14.8 H Platelet Count 260 Mean Platelet Volume 8.2 Neutrophils (%) (Auto) 76.8 H Lymphocytes (%) (Auto) 13.3 L Monocytes (%) (Auto) 8.0 Eosinophils (%) (Auto) 1.7 Basophils (%) (Auto) 0.2 Neutrophils # (Auto) 7.4 Lymphocytes # (Auto) 1.3 Monocytes # (Auto) 0.8 Eosinophils # (Auto) 0.2 Basophils # (Auto) 0.0 CBC Comment Sodium Level 147 H Potassium Level 3.7 Chloride Level 106 Carbon Dioxide Level 31.5 Anion Gap 10 Blood Urea Nitrogen 23 H Creatinine 1.00 Estimated GFR/1.73 m2 85 BUN/Creatinine Ratio 23.0 H Glucose Level 63 L Calcium Level 8.6 Total Bilirubin 0.4 Aspartate Amino Transf (AST/SGOT) 206 H Alanine Aminotransferase (ALT/SGPT) 60 Alkaline Phosphatase 68 Total Protein 7.0 Albumin 3.6 Globulin 3.4 Albumin/Globulin Ratio 1.1 Chemistry Comments Acetaminophen Level < 2.0 L Ethyl Alcohol Level < 10 Urine Opiates Screen Negative Urine Methadone Screen Positive Urine Fentanyl Screen Negative Urine Barbiturates Screen Negative Urine Phencyclidine Screen Negative Urine Amphetamines Screen Negative Urine Benzodiazepines Screen Positive Urine Cocaine Screen Negative Urine Cannabinoids Screen Negative Drug Screen Comment EKG/XRAY/CT/US/VASC/MRI EKG : Additional Comment 1502 EKG interpreted to show Sinus tachycardia at [address] segment elevation. QTC 387 ms. Medical Decision Making Additional Comment This is a 38-year-old male with a history of polysubstance abuse. His mother brought him to the emergency department today due to concerns that he was difficult to awaken. The patient admits to taking a type of benzodiazepine that he orders online today. He denied intention to harm himself, but admitted to taking 20-30 tablets, which is much more than his usual 2-3 tablets per day. In addition, his urine drug screen was positive for methadone. The patient was given naloxone when he was found to be positive for methadone, but this did not affect any change in his mental status. He ultimately did require 2 L of oxygen to maintain saturations greater than 90%. He was placed on his side to recuperate from his inadvertent overdose. Poison control has been contacted, and suggested that the patient be monitored for 6 hours. Departure Disposition: 01 HOME / SELF CARE / HOMELESS Impression: Primary Impression: Poisoning by opiate or related narcotic Additional Impression: AMS (altered mental status) Condition: Stable Discharge Instructions: Benzodiazepine Overdose, Opioid Overdose Additional Instructions: Mixing opioids and benzodiazepines is risky and can cause compounded respiratory depression which can cause . You have been referred to the substance abuse navigator at this hospital and she will call you within the next few days to discuss available options to help you cease using opiods and benzodiazepines. Referrals: NO PRIMARY CARE PROVIDER (PCP) Prescriptions Naloxone HCl (Narcan) 4 Mg/Actuation [place] 1 SPRAYS BOTHNARES ONCE for overdose symptoms for 1 Day, #1 EA 0 Refills Prov: RANI ROBLES NP 09/06/24 Education Educated: Patient Educated regarding: diagnosis, treatment, prognosis, need for follow up Signature Scribe Signature: no scribe Attestation: The note accurately reflects work and decisions made by me.Rani Hinds NP 09/06/24 15:13 RANI ROBLES NP September 06, 2024 15:13 EMPERATRIZ AVERY MD September 06, 2024 22:37
[2024-09-06 15:39] LABS: BASOPHILS % (AUTO) 0.2 % (0-1); EOSINOPHILS # (AUTO) 0.2 X10'3 (0-0.9); EOSINOPHILS % (AUTO) 1.7 % (0-6); HEMATOCRIT 40.6 % (42.0-52.0); HEMOGLOBIN 13.3 g/dl (14.0-17.9); LYMPHOCYTES # (AUTO) 1.3 X10'3 (1.1-4.8); LYMPHOCYTES % (AUTO) 13.3 % (21-51); MEAN CORPUSCULAR HEMOGLOBIN 27.8 PG (27.0-31.0); MEAN CORPUSCULAR HGB CONC 32.7 g/dL (33.0-36.5); MEAN CORPUSCULAR VOLUME 85.1 FL (78-98); MEAN PLATELET VOLUME 8.2 FL (7.4-10.4); MONOCYTES # (AUTO) 0.8 X10'3 (0-0.9); NEUTROPHILS # (AUTO) 7.4 X10'3 (1.8-7.7); NEUTROPHILS % (AUTO) 76.8 % (42-75); PLATELET COUNT 260 X10'3 (140-440); RED BLOOD COUNT 4.78 X10'6 (4.70-6.10); RED CELL DISTRIBUTION WIDTH 14.8 % (11.5-14.5); WHITE BLOOD COUNT 9.6 X10'3 (4.5-11.0)
[2024-09-06 15:49] LABS: ALANINE AMINOTRANSFERASE 60 U/L (12-78); ALBUMIN 3.6 G/DL (3.4-5.0); ALBUMIN/GLOBULIN RATIO 1.1 (1.1-1.5); ALKALINE PHOSPHATASE 68 IU/L (46-116); ANION GAP 10 (8-16); ASPARTATE AMINO TRANSFERASE 206 U/L (10-37); BILIRUBIN,TOTAL 0.4 MG/DL (0.1-1.0); BLOOD UREA NITROGEN 23 MG/DL (7-18); CALCIUM 8.6 MG/DL (8.5-10.1); CHLORIDE 106 MMOL/L (99-107); ETHANOL < 10 MG/DL (<10); GLUCOSE 63 MG/DL (70-104); POTASSIUM 3.7 MMOL/L (3.5-5.1); SODIUM 147 MMOL/L (135-145); TOTAL CARBON DIOXIDE 31.5 MMOL/L (24-32); eCRCL 115 ML/MIN; eGFR 85 ML/MIN
[2024-09-06 15:57] LABS: URINE AMPHETAMINE SCREEN NEGATIVE (Neg); URINE BARBITUATE SCREEN NEGATIVE (Neg); URINE BENZODIAZEPINES SCREEN POSITIVE (Neg); URINE CANNABINOID SCREEN NEGATIVE (Neg); URINE COCAINE SCREEN NEGATIVE (Neg); URINE METHADONE SCREEN POSITIVE (Neg); URINE OPIATE SCREEN NEGATIVE (Neg); URINE PHENCYCLIDINE SCREEN NEGATIVE (Neg)
[2024-09-06 16:07] LABS: ACETAMINOPHEN < 2.0 UG/ML (10-30)
[2024-09-06] MEDS: naloxone 0.4 mg/ml inj IV PRN (16:22)
[2024-09-06] MEDS ORDERED: NALO4SPR BOTHNARES (16:41)
[2024-09-06 23:09] VITALS: BP 127/81; PULSE 74; RESP 13; TEMP 98.5; O2SAT 93
== END 2024-09-06 23:24 | disposition home or self-care (01) ==
LOC: ER 14:27
DX: T40.601A Poisoning by unspecified narcotics, accidental (unintentional), initial encounter (principal); R41.82 Altered mental status, unspecified; E11.9 Type 2 diabetes mellitus without complications; F15.90 Other stimulant use, unspecified, uncomplicated; Y92.89 Other specified places as the place of occurrence of the external cause
CPT/HCPCS: 36415; 80053; 80305; 80320; 80329; 85025; 93005; 96361; 96374; 99285; J2310; J7030; 99284

== ENCOUNTER 2024-11-30 15:19 | Outpatient (CLI) | payer MEDICAID ==
[~2024-11-30 15:19] MED LIST changes: +NALO4SPR BOTHNARES
--- NOTE | 2024-11-30 15:44 | ELECTROCARDIOGRAPH REPORT ---
[facility] Test Date: 2024-11-30 Test Time: 15:23:28 Pat Name: NAHED MANJARREZ Department: PRE/OP CARDIOLOGY [id number] Room: Gender: M [employer]: ESTEFANIA : 1985 Requested By: STEVEN RONQUILLO Order Number: [id number] Reading MD: Dr. DMITRY Walters Measurements Intervals [place] Rate: 83 P: 68 WI: 146 QRS: 70 QRSD: 88 T: 18 QT: 333 QTc: 392 Interpretive Statements Sinus rhythm LAE, consider biatrial enlargement Electronically Signed On 11-30-2024 16:46:[address] DMITRY Walters Please click the below link to view image of tracing.
== END 2024-11-30 23:59 | disposition home or self-care (01) ==
LOC: RAD 15:19
PROVIDERS: ATTEND Physician Assistant
DX: R94.31 Abnormal electrocardiogram [ECG] [EKG] (principal); F11.20 Opioid dependence, uncomplicated
CPT/HCPCS: 93005